=== PATIENT | female | born 1950 | race Caucasian/White ===

== ENCOUNTER 2017-04-14 14:09 | Emergency (ER) | payer OTHER ==
[~2017-04-14] VITALS: Ht 157.5 cm; Wt 53.5 kg
[2017-04-14 16:44] VITALS: BP 125/61
[2017-04-14] MEDS ORDERED: MONTELUKAST SOD10 M1 PO (16:57)
[2017-04-14] MEDS ORDERED: CALCIUM 500 +1 EAC5 PO (16:57)
[2017-04-14] MEDS ORDERED: ASTEPRO205.5 MCG1 NASB (16:57)
[2017-04-14] MEDS ORDERED: FLAX OIL1000 M1 PO (16:58)
[2017-04-14] MEDS ORDERED: MELATONIN3 M4 PO (16:58)
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
[2017-04-14] MEDS ORDERED: PREDNISONE20 M1 PO (17:56)
[2017-04-14] MEDS ORDERED: VISTARIL25 M1 PO (17:56)
== END 2017-04-14 18:17 ==
LOC: ERH 14:09
DX: S10.96XA Insect bite of unspecified part of neck, initial encounter (principal); W57.XXXA Bitten or stung by nonvenomous insect and other nonvenomous arthropods, initial encounter; Y92.9 Unspecified place or not applicable; Y93.9 Activity, unspecified